=== PATIENT | female | born 1945 | race Caucasian/White ===

== ENCOUNTER → 2016-10-21 | Outpatient (CLI) | payer MEDICARE, BC ==
--- NOTE | 2016-10-21 10:38 | ECHOF ---
Referral Reason:R06.02 sob MEASUREMENTS -------- HEIGHT: 129.5 cm WEIGHT: 49.0 kg BP: 182/81 RVIDd: 3.3 cm (< 3.3) IVSd: 0.9 cm (0.6 - 1.1) LVIDd: 4.3 cm (3.9 - 5.3) LVPWd: 1.0 cm (0.6 - 1.1) IVSs: 1.4 cm LVIDs: 2.0 cm LVPWs: 1.6 cm LAESV Index (A-L): 28.63 ml/m Ao Diam: 2.6 cm (2.0 - 3.7) AV Cusp: 1.5 cm (1.5 - 2.6) LA Diam: 3.4 cm (2.7 - 3.8) MV EXCURSION: 13.059 mm (> 18.000) MV EF SLOPE: 82 mm/s (70 - 150) EPSS: 0.4 cm MV E Jack: 0.75 m/s MV DecT: 270 ms MV A Jack: 0.75 m/s MV E/A Ratio: 1.00 RAP: 5.00 mmHg RVSP: 33.21 mmHg FINDINGS -------- Sinus rhythm. This was a technically good study. Left ventricular wall thickness is normal. Overall left ventricular systolic function is normal with, an EF between 55 - 60 %. The right ventricle is normal in size and function. Normal LA size by volume 22+/-6 ml/m2. The right atrium is normal in size. Aortic valve is trileaflet and is mildly thickened. The mitral valve leaflets are mildly thickened. Mild mitral annular calcification present. [id number] mitral regurgitation is present. Mild tricuspid regurgitation present. The right ventricular systolic pressure, as measured by Doppler, is 33.21mmHg. Pulmonic valve appears structurally normal. The aortic root size is normal. Normal inferior vena cava with normal inspiratory collapse consistent with estimated right atrial pressure of 5 mmHg. The pericardium is normal. CONCLUSIONS -------- 1. Sinus rhythm. 2. Mild mitral annular calcification present. 3. Gbmj-ba-johbnncc mitral regurgitation is present. 4. Mild tricuspid regurgitation present. 5. The right ventricular systolic pressure, as measured by Doppler, is 33.21mmHg. 6. Pulmonic valve appears structurally normal. 7. The aortic root size is normal. 8. Normal inferior vena cava with normal inspiratory collapse consistent with estimated right atrial pressure of 5 mmHg. 9. The pericardium is normal. 10. This was a technically good study. 11. Left ventricular wall thickness is normal. 12. Overall left ventricular systolic function is normal with, an EF between 55 - 60 %. 13. The right ventricle is normal in size and function. 14. Normal LA size by volume 22+/-6 ml/m2. 15. The right atrium is normal in size. 16. Aortic valve is trileaflet and is mildly thickened. 17. The mitral valve leaflets are mildly thickened. INSPECTOR [employer]: Kendy Ricks RDCS
--- NOTE | 2016-10-21 12:01 | NM ---
EXAMINATION TYPE: NM stress cardiolite complete DATE OF EXAM: 10/21/2016 COMPARISON: Prior nuclear medicine Lexiscan stress test October 12, 2010. Prior CTA chest October 28, 2013 . HISTORY: History of hypertension, stroke, prior catheterization with successful angioplasty, to prior heart attacks, asthma, family history of heart attack, and hypercholesteremia presents with difficul ty in breathing per patient and order. TECHNIQUE: After the intravenous administration of 10.63 mCi Tc 99m Sestamibi - Rest images obtained 45 minutes post injection. The patient exercised using a GARCÍA protocol and 1 minute prior to peak exercise was injected with 25.1 mCi Tc 99m Sestamibi - Stress images obtained 30 minutes post inject ion. FINDINGS: Targeted heart rate was achieved during performance of the study. Review of stress and rest SPECT yuli ges demonstrates no distinct perfusion abnormality. Gated analysis shows normal wall motion with an estimated left ventricular ejection fraction of 64 %. IMPRESSION: No scintigraphic evidence for reversible ischemia
--- NOTE | 2016-10-21 12:18 | P.STRESS ---
- Stress Test Note Stress Test Results/Findings: Exam Performed: NM stress cardiolite complete Exam Date: 10/21/16 Reason for Exam: CP Height: 4 ft 2 in Weight: 48.988 kg Protocol: GARCÍA Stage: 111 Duration of Exercise: 6.47 Resting Heart Rate: 52 Resting Blood Pressure: 127/71 Maximum Achieved Heart Rate: 127 Maximum Achieved Blood Pressure: 188/70 85% PMHR: 129 100% PMHR: 152 METS: 8.1 Technologist Comment: Stress Test Results/Findings: This patient underwent exercise test patient was exercised for a total period of 7 minutes. The EKG shows normal sinus rhythm with normal ND interval and QRS duration and normal ST-T waves. No ST segment depression suggestive of ischemia was noted during exercise. Patient did not complain of any chest pain during the test. No dysrhythmias were noted. Conclusion. This stresses is not suggestive of ischemia.
--- NOTE | 2016-10-21 15:55 | EST ---
Stress Test Results/Findings: Exam Performed: NM stress cardiolite complete Exam Date: 10/21/16 Reason for Exam: CP Height: 4 ft 2 in Weight: 48.988 kg Protocol: GARCÍA Stage: 111 Duration of Exercise: 6.47 Resting Heart Rate: 52 Resting Blood Pressure: 127/71 Maximum Achieved Heart Rate: 127 Maximum Achieved Blood Pressure: 188/70 85% PMHR: 129 100% PMHR: 152 METS: 8.1 Technologist Comment: Stress Test Results/Findings: This patient underwent exercise test patient was exercised for a total period of 7 minutes. The EKG shows normal sinus rhythm with normal MT interval and QRS duration and normal ST-T waves. No ST segment depression suggestive of ischemia was noted during exercise. Patient did not complain of any chest pain during the test. No dysrhythmias were noted. Conclusion. This stresses is not suggestive of ischemia. MTDD
== END | disposition home or self-care (01) ==
LOC: RADNMMAIN 07:59
PROVIDERS: ATTEND Internal Medicine Cardiovascular Disease
DX: R06.02 Shortness of breath (principal)
CPT/HCPCS: 93017; 93306; 78452; A9500

== ENCOUNTER → 2016-12-08 | Outpatient (CLI) | payer MEDICARE, BC ==
--- NOTE | 2016-12-09 07:49 | BD ---
EXAMINATION TYPE: MG DEXA axial skeleton. DATE OF EXAM: 12/08/2016 COMPARISON: DEXA bone scan October 20, 2014 CLINICAL HISTORY: Postmenopausal female Height: 58.2 IN Weight: 109 LBS FRAX RISK QUESTIONS: Alcohol (3 or more units per day): NO Family History (Parent hip fracture): NO Glucocorticoids (More than 3mos): NO (Ex: prednisone, prednisolone, methylprednisolone, dexamethasone, and hydrocortisone). History of Fracture in Adulthood: RT FOOT AGE 52 Secondary Osteoporosis: 1. Type 1 Diabetes: NO 2. Hyperthyroidism: NO 3. Menopause before 45: YES AGE 42 4. Malnutrition: NO 5. Chronic liver disease: NO Rheumatoid Arthritis: NO Current Tobacco Use: NO RISK FACTORS HISTORY OF: Active: YES Diet low in dairy products/other sources of calcium: YES Postmenopausal woman: AGE 42 Take estrogen and/or progesterone medications: NOT NOW How long: AGE 48 -58 MEDICATIONS: Additional Medications: CALCIUM, VIT D, ATORVASTATIN, COREG, NORVASC,BRILINTA, DULCOLAX, COQ10(EBIQUI NAL), SINGULAIR, ZESTRIL, RESTASIS, SUSTAINE GEL DROPS, ASPIRIN, CONSTIPATION MED,ALIGN, DIAZEPAM, ME LATONIN EXAM MEASUREMENTS: Bone mineral densitometry was performed using the [employer] System. Bone mineral density as measured about the Lumbar spine is: ----- L1-L4(G/cm2): 1.014 T Score Values are as follows: ----- L2: -2.5 ----- L3: -0.9 ----- L4: -0.6 ----- L1-L4: -1.4 Bone mineral density has: Increased 11.7% since study of: 09/30/2014 Bone mineral density about the R hip (g/cm2): 0.842 Bone mineral density about the L hip (g/cm2): 0.897 T Score values are as follows: -----R Neck: -1.4 -----L Neck: -1.0 -----R Total: -1.3 -----L Total: -0.9 Bone mineral density has: Increased 1.3% since study of: 09/30/2014 IMPRESSION: Osteopenia (T Score between -2.5 and -1 as noted by T score values remains present in the low back an d both hips though bone density is increased or improved from prior study. There remains slightly inc reased risk of fracture and the patient may be considered for treatment. Re-Screen 2-5 years. NOTE: T-SCORE=SD OF THE YOUNG ADULT MEAN.
--- NOTE | 2016-12-09 12:46 | MM ---
Reason for exam: screening (asymptomatic). Last mammogram was performed 1 year ago. History: Patient is postmenopausal. Family history of premenopausal breast cancer in maternal aunt and breast cancer in maternal aunt. Took estrogen for 14 years. Physical Findings: A clinical breast exam by your physician is recommended on an annual basis and results should be correlated with mammographic findings. MG 3D Screening Mammo W/Cad Bilateral CC and MLO view(s) were taken. Prior study comparison: December 04, 2015, bilateral MG 3d screening mammo w/cad. December 10, 2014, bilateral MG work up mamm w CAD BILAT. The breast tissue is heterogeneously dense. This may lower the sensitivity of mammography. Finding #1: Architectural distortion in the posterior position of the left breast. Finding #2: There are typically benign round calcifications. There is no discrete abnormality. ASSESSMENT: Benign, BI-RAD 2 RECOMMENDATION: Routine screening mammogram of both breasts in 1 year.
== END | disposition home or self-care (01) ==
LOC: RADMAMWWP 15:28
PROVIDERS: ATTEND Internal Medicine Geriatric Medicine
DX: Z12.31 Encounter for screening mammogram for malignant neoplasm of breast (principal); M85.88 Other specified disorders of bone density and structure, other site
CPT/HCPCS: 77080; 77063; G0202

== ENCOUNTER → 2017-12-22 | Outpatient (CLI) | payer MEDICARE, BC ==
--- NOTE | 2017-12-23 13:25 | MM ---
Reason for exam: screening (asymptomatic). Last mammogram was performed 1 year ago. History: Patient is postmenopausal. Family history of premenopausal breast cancer in maternal aunt and breast cancer in maternal aunt. Took estrogen for 14 years. Physical Findings: A clinical breast exam by your physician is recommended on an annual basis and results should be correlated with mammographic findings. MG 3D Screening Mammo W/Cad Bilateral CC and MLO view(s) were taken. Prior study comparison: December 08, 2016, bilateral MG 3d screening mammo w/cad. December 04, 2015, bilateral MG 3d screening mammo w/cad. The breast tissue is heterogeneously dense. This may lower the sensitivity of mammography. Stable benign calcifications. There is no discrete abnormality. No significant changes when compared with prior studies. ASSESSMENT: Benign, BI-RAD 2 RECOMMENDATION: Routine screening mammogram of both breasts in 1 year.
== END | disposition home or self-care (01) ==
LOC: RADMAMWWP 14:05
PROVIDERS: ATTEND Internal Medicine Geriatric Medicine
DX: Z12.31 Encounter for screening mammogram for malignant neoplasm of breast (principal)
CPT/HCPCS: 77063; 77067